=== PATIENT | female | born 1965 | race Caucasian/White ===

== ENCOUNTER 2021-01-14 08:48 | Emergency (ER) | payer OTHER ==
[~2021-01-14 08:48] MED LIST: BACTROBAN OINT22 GM EXT; CEPHALEXIN500 M1 PO; KEFLEX CAP 500500 MG PO; NORCO 5-325 TA1 EACH PO; PYRIDIUM200 MG PO; ZOVIRAX 5% CREAM5 GM TOP
[2021-01-14 09:41] LABS: HEMOGLOBIN 14.2 gm/dl (12.3-15.3); RED BLOOD COUNT 4.62 M/UL (4.00-5.10); WHITE BLOOD COUNT 7.7 K/UL (4.5-11.0)
[2021-01-14 10:04] LABS: BUN/CREATININE RATIO 18 (0-10)
[2021-01-14] MEDS ORDERED: CEFPODOXIME PR200 MG PO (12:24)
[2021-01-14] MEDS ORDERED: FLOMAX 0.4 MG0.4 MG PO (12:24)
[2021-01-14] MEDS ORDERED: TORADOL 10 MG T10 MG PO (12:24)
== END 2021-01-14 12:46 | disposition home or self-care (01) ==
LOC: ER1 08:48
PROVIDERS: Student in an Organized Health Care Education/Training Program
DX: N13.2 Hydronephrosis with renal and ureteral calculous obstruction (principal); Z88.0 Allergy status to penicillin; Z79.899 Other long term (current) drug therapy; Z87.442 Personal history of urinary calculi
CPT/HCPCS: 80053; 81001; 83690; 84703; 85025; 96365; 96375; 99284; J0696; J1885; J2270; J2405; J7120

== ENCOUNTER → 2021-01-19 | Outpatient (CLI) | payer OTHER ==
[~2021-01-19] MED LIST changes: +CEFPODOXIME PR200 MG PO; +FLOMAX 0.4 MG0.4 MG PO; +IBUPROFEN600 MG PO; +NORFLEX 100 MG100 MG PO; +TORADOL 10 MG T10 MG PO
== END ==
LOC: EXRD 11:38
DX: N20.0 Calculus of kidney (principal)
CPT/HCPCS: 74018

== ENCOUNTER 2021-04-09 12:29 | Emergency (ER) | payer OTHER ==
[~2021-04-09 12:29] MED LIST changes: -IBUPROFEN600 MG PO; -NORFLEX 100 MG100 MG PO
[2021-04-09] MEDS ORDERED: NORFLEX 100 MG100 MG PO (15:28)
[2021-04-09] MEDS ORDERED: IBUPROFEN600 MG PO (15:28)
== END 2021-04-09 15:41 | disposition home or self-care (01) ==
LOC: ER1 12:29
DX: S16.1XXA Strain of muscle, fascia and tendon at neck level, initial encounter (principal); S39.012A Strain of muscle, fascia and tendon of lower back, initial encounter; S70.02XA Contusion of left hip, initial encounter; M19.90 Unspecified osteoarthritis, unspecified site; F17.290 Nicotine dependence, other tobacco product, uncomplicated; Z88.0 Allergy status to penicillin; Z79.899 Other long term (current) drug therapy; Z87.39 Personal history of other diseases of the musculoskeletal system and connective tissue; V49.50XA Passenger injured in collision with unspecified motor vehicles in traffic accident, initial encounter; Y92.410 Unspecified street and highway as the place of occurrence of the external cause
CPT/HCPCS: 71046; 72125; 72131; 73502; 99284

== ENCOUNTER → 2022-05-01 | Outpatient (CLI) | payer OTHER ==
[~2022-05-01] MED LIST changes: +IBUPROFEN600 MG PO; +NORFLEX 100 MG100 MG PO
[2022-05-01 12:33] LABS: HEMOGLOBIN 14.1 gm/dl (12.3-15.3); RED BLOOD COUNT 4.61 M/UL (4.00-5.10); WHITE BLOOD COUNT 3.3 K/UL (4.5-11.0)
[2022-05-01 13:10] LABS: BUN/CREATININE RATIO 22 (0-10)
[2022-05-02 11:14] LABS: RHEUMATOID ARTHRITIS FACTOR <10.0 IU/mL (<14.0)
[2022-05-02 15:11] LABS: CHOLESTEROL, TOTAL 216 mg/dL (100-199); HDL SIZE 8.8 nm (>=9.2); HDL-C 42 mg/dL (>39); HDL-P (TOTAL) 25.5 umol/L (>=30.5); LARGE HDL-P 2.5 umol/L (>=4.8); LARGE VLDL-P 3.9 nmol/L (<=2.7); LDL SIZE 21.4 nm (>20.5); LDL SIZE 21.4 nm (>=20.8); LDL-C 160 mg/dL (0-99); LDL-P 1673 nmol/L (<1000); LP-IR SCORE 73 (<=45); SMALL LDL-P 377 nmol/L (<=527); TRIGLYCERIDES 80 mg/dL (0-149); VLDL SIZE 61.4 nm (<=46.6)
== END ==
LOC: LAB 11:51
PROVIDERS: Emergency Medicine
DX: G89.4 Chronic pain syndrome (principal); M79.7 Fibromyalgia; M54.2 Cervicalgia; M51.36 Other intervertebral disc degeneration, lumbar region; K21.9 Gastro-esophageal reflux disease without esophagitis; L93.2 Other local lupus erythematosus; R53.83 Other fatigue; B96.81 Helicobacter pylori [H. pylori] as the cause of diseases classified elsewhere
CPT/HCPCS: 36415; 80053; 80061; 83704; 84443; 84550; 85025; 86038; 86140; 86431